=== PATIENT | male | born 1960 | race Caucasian/White ===

== ENCOUNTER → 2020-08-18 | Outpatient (CLI) | payer MEDICARE ==
[~2020-08-18] VITALS: Ht 177.8 cm; Wt 95.3 kg
== END ==
LOC: OPSV 09:52
DX: G35 Multiple sclerosis (principal)
CPT/HCPCS: 96365; 96366; 96375; J1200; J2350; J2930; J7030

== ENCOUNTER → 2020-12-02 | Outpatient (CLI) | payer MEDICARE | LOC: EMI 09:11 | DX: G35 Multiple sclerosis (principal); H74.8X2 Other specified disorders of left middle ear and mastoid; R93.0 Abnormal findings on diagnostic imaging of skull and head, not elsewhere classified | CPT/HCPCS: 70553; A9577 ==

== ENCOUNTER → 2020-12-11 | Outpatient (CLI) | payer MEDICARE | LOC: EMI 11:00 | DX: G35 Multiple sclerosis (principal); M47.812 Spondylosis without myelopathy or radiculopathy, cervical region | CPT/HCPCS: 72156; A9577 ==

== ENCOUNTER → 2021-03-04 | Outpatient (CLI) | payer MEDICARE ==
[~2021-03-04] VITALS: Ht 177.8 cm; Wt 95.3 kg
== END ==
LOC: OPSV 02-16 10:00
DX: G35 Multiple sclerosis (principal)
CPT/HCPCS: 96360; 96375; 96413; 96415; J2350; J2930; J7030

== ENCOUNTER → 2021-10-27 | Outpatient (CLI) | payer MEDICARE ==
[~2021-10-27] VITALS: Ht 177.8 cm; Wt 95.3 kg
== END ==
LOC: OPSV 08:00
DX: G35 Multiple sclerosis (principal)
CPT/HCPCS: 96361; 96375; 96413; 96415; J1200; J2350; J2930; J7030